=== PATIENT | male | born 1960 | race Caucasian/White ===

== ENCOUNTER 2017-05-08 10:19 | Emergency (ER) | payer SELFPAY | END 2017-05-08 14:05 | disposition left against medical advice (07) | LOC: FTE 14:05 | DX: Z53.21 Procedure and treatment not carried out due to patient leaving prior to being seen by health care provider (principal) ==

== ENCOUNTER 2017-10-19 00:10 | Emergency (ER) | payer MEDICAID ==
[2017-10-19] MEDS ORDERED: SOD CHLORIDE 0.9% 100 ML (01:14)
[2017-10-19] MEDS ORDERED: IOHEXOL 300MG/ML 150 ML BTL (01:14)
[2017-10-19] MEDS: ONDANSETRON 4 MG INJ IV (01:53)
[2017-10-19] MEDS: morphine 4 MG/ML VIAL IV (01:54)
[2017-10-19 02:09] LABS: ADD MAN DIFF? NO
[2017-10-19 02:12] LABS: BASOPHILS % 0.4 % (0.0-2.0); EOSINOPHILS % 0.4 % (0.0-7.0); HEMATOCRIT 40.3 % (42.0-52.0); HEMOGLOBIN 13.8 g/dl (14.0-18.0); IMMATURE GRANS #M 0.02 10^3/ul; IMMATURE GRANS % (M) 0.3 %; LYMPHOCYTES # 1.1 10^3/ul (0.8-2.9); LYMPHOCYTES % 15.3 % (15.0-51.0); MEAN CORPUSCULAR HEMOGLOBIN 30.4 pg (29.0-33.0); MEAN CORPUSCULAR HGB CONC 34.2 g/dl (32.0-37.0); MEAN CORPUSCULAR VOLUME 88.8 fl (82.0-101.0); MEAN PLATELET VOLUME 9.3 fl (7.4-10.4); MONOCYTE # 0.8 10^3/ul (0.3-0.9); MONOCYTES % 11.1 % (0.0-11.0); NEUTROPHIL # 5.4 10^3/ul (1.6-7.5); NEUTROPHILS % 72.5 % (39.0-77.0); PLATELET COUNT 234 10^3/UL (140-415); RED BLOOD COUNT 4.54 10^6/ul (4.70-6.10); RED CELL DISTRIBUTION WIDTH 12.5 % (11.5-14.5)
[2017-10-19 02:12] LABS: WHITE BLOOD COUNT 7.5 10^3/ul (4.8-10.8)
[2017-10-19 02:32] LABS: INR 0.96; PROTIME 12.9 Sec (11.9-14.9)
[2017-10-19 02:33] LABS: ALANINE AMINOTRANSFERASE 16 IU/L (13-69); ALBUMIN 4.1 g/dl (3.3-4.9); ALBUMIN/GLOBULIN RATIO 1.05; ALKALINE PHOSPHATASE 117 IU/L (42-121); ANION GAP 13 (8-16); ASPARTATE AMINO TRANSFERASE 40 IU/L (15-46); BILIRUBIN,INDIRECT 0.4 mg/dl (0-1.1); BILIRUBIN,TOTAL 0.4 mg/dl (0.2-1.3); BLOOD UREA NITROGEN 13 mg/dl (7-20); CARBON DIOXIDE 26 mmol/L (21-31); CHLORIDE 105 mmol/L (97-110); CREATININE 0.81 mg/dl (0.61-1.24); GLUCOSE 111 mg/dl (70-220); PARTIAL THROMBOPLASTIN TIME 33.9 Sec (25.0-35.0); SODIUM 140 mmol/L (135-144)
== END 2017-10-19 03:04 | disposition left against medical advice (07) ==
LOC: FTE 00:10
DX: S80.811A Abrasion, right lower leg, initial encounter (principal); R40.2412 Glasgow coma scale score 13-15, at arrival to emergency department; R07.9 Chest pain, unspecified; V13.4XXA Pedal cycle driver injured in collision with car, pick-up truck or van in traffic accident, initial encounter
CPT/HCPCS: 71045; 72170; 80053; 85025; 85610; 85730; 96374; 96375; 99284-25

== ENCOUNTER 2017-12-28 21:25 | Emergency (ER) | payer MEDICAID ==
[2017-12-29] MEDS: traMADol 50 MG TAB PO (00:47)
== END 2017-12-29 02:09 | disposition home or self-care (01) ==
LOC: FTE 12-29 02:09
DX: S06.0X1A Concussion with loss of consciousness of 30 minutes or less, initial encounter (principal); S80.01XA Contusion of right knee, initial encounter; F17.210 Nicotine dependence, cigarettes, uncomplicated; W01.198A Fall on same level from slipping, tripping and stumbling with subsequent striking against other object, initial encounter; Y92.810 Car as the place of occurrence of the external cause
CPT/HCPCS: 70450; 73562; 99284-25